=== PATIENT | female | born 2000 | race Caucasian/White ===

== ENCOUNTER 2019-04-17 08:45 | Emergency (ER) | payer SELFPAY ==
[2019-04-17] MEDS ORDERED: Ketorolac Tromethamine 30 MG/ML VIAL ONE (08:53)
[2019-04-17] MEDS ORDERED: Ondansetron PF 4 MG/2 ML Vial ONE (08:53)
[2019-04-17] MEDS ORDERED: Morphine 4 MG/ML VIAL ONE ×2 (08:56→09:29)
[2019-04-17 09:13] LABS: #Basophils 0.1 thou/uL (0.0-0.2); #Eosinphils 0.1 thou/uL (0.0-0.7); #Lymphocytes 2.6 thou/uL (1.20-3.40); #Monocytes 0.8 thou/uL (0.11-0.59); #Neutrophils 7.4 thou/uL (1.40-6.50); %Basophils 0.9 % (0.0-1.0); %Eosinophils 0.6 % (0.0-10.0); %Lymphocytes 23.4 % (28.0-48.0); %Monocytes 7.3 % (0.0-4.0); %Neutrophils 67.8 % (31.0-61.0); Hemoglobin 15.4 g/dL (12.0-16.0); Mean Corpuscular HGB CONC 33.4 g/dL (32.0-36.0); Mean Corpuscular Hemoglobin 31.4 pg (25.0-35.0); Mean Corpuscular Volume 93.9 fL (78.0-98.0); Platelet Count 345 thou/uL (130-400); RBC Distribution Width 10.9 % (11.5-14.5); Red Blood Cell (RBC) Count 4.89 mill/uL (4.00-5.20); White Blood Cell (WBC) Count 10.9 thou/uL (4.8-10.8)
[2019-04-17 09:30] LABS: ALT (SGPT) 24 U/L (8-55); AST (SGOT) 13 U/L (5-34); Albumin 4.6 g/dL (3.5-5.0); Alkaline Phosphatase 72 U/L (40-100); Anion Gap 14 mmol/L (10-20); BUN (Urea Nitrogen) 9 mg/dL (7.0-18.7); Bilirubin, Total 0.4 mg/dL (0.2-1.2); Calc. Creatinine Clearance 0 mL/min (70-130); Calcium 9.7 mg/dL (7.8-10.44); Carbon Dioxide 23 mmol/L (22-29); Chloride 102 mmol/L (98-107); Estimated GFR-MDRD 86; Globulin 2.9 g/dL (2.4-3.5); Glucose 139 mg/dL (70-105); Potassium 3.3 mmol/L (3.5-5.1); Protein, Total 7.5 g/dL (6.0-8.3); Sodium 136 mmol/L (136-145)
[2019-04-17 09:46] LABS: BHCG - Serum Negative (NEGATIVE); Pregs Control Background? CLEAR/WHITE (CLR/WHITE); Pregs Control Bar Appear? YES (CONTROL BAR)
--- NOTE | 2019-04-17 10:28 | CT ---
CT ABDOMEN AND PELVIS PERFORMED WITHOUT CONTRAST ENHANCEMENT: Date: 04/17/19 HISTORY: Hematuria. Complaining of right lower back pain this morning. FINDINGS: CT ABDOMEN The lung bases are clear. The liver, spleen, pancreas, and gallbladder regions appear unremarkable gi bassem the limitations of a noncontrast exam. The right and left adrenal glands are normal in appearance. There is a punctate nonobstructing lower pole left renal calculus and some minimal dilatation of the right collecting system and ureter relate d to the 2-3 mm calculus located just proximal to the right ureterovesical junction. There is no sign ificant periaortic or mesenteric adenopathy. CT PELVIS: CT of pelvis was performed without contrast enhancement. The appendix is normal. No adenopathy or mas s. An IUD is present. IMPRESSION: 1. Very mild right-sided hydronephrosis and hydroureter related to a 2.0 mm calculus located approxi mately 1.0 cm proximal to the right ureterovesical junction. 2. Punctate lower pole nonobstructing left renal calculus. POS: [facility]
== END 2019-04-17 10:59 | disposition home or self-care (01) ==
LOC: ERS 08:45
DX: N13.2 Hydronephrosis with renal and ureteral calculous obstruction (principal)
CPT/HCPCS: 74176; 80053; 84703; 85025; 96361; 96374; 96375; J1885; J2270; J2405